=== PATIENT | male | born 1965 | race Native Hawaiian/Other Pacific Islander ===

== ENCOUNTER 2016-09-03 17:02 | Observation (INO) | payer OTHER ==
[~2016-09-03] VITALS: Ht 188 cm; Wt 87.7 kg
[~2016-09-03 17:02] MED LIST: ALAVERT10 M2 PO; ASPIRIN LOW STR81 MG OR; CITALOPRAM40 MG PO; GABA100C2 PO; LOPRESSOR100 MG PO; SIMV10TA PO
[2016-09-03 18:01] LABS: PLATELET COUNT 215 K/uL (142-355)
[2016-09-03] MEDS ORDERED: OMEP20CA PO (18:04)
[2016-09-03] MEDS ORDERED: CALAN SR120 MG PO (18:05)
[2016-09-03] MEDS ORDERED: LISI10TA11 PO (18:05)
[2016-09-03] MEDS ORDERED: CLOP75TA2 PO (18:05)
[2016-09-03] MEDS ORDERED: PLETAL50 MG PO (18:06)
[2016-09-03] MEDS ORDERED: CELEXA40 MG PO (18:06)
[2016-09-03] MEDS ORDERED: MOTRIN IB200 MG PO (18:07)
[2016-09-03 18:16] LABS: POTASSIUM 4.1 mmol/L (3.6-5.2); SODIUM 129 mmol/L (136-145)
[2016-09-03 18:54] VITALS: BP 146/94; TEMP 97.4; Ht 188 cm; Wt 87.7 kg
[2016-09-03 20:00] VITALS: BP 90/45; TEMP 97.4
[2016-09-04 01:05] VITALS: BP 112/73; TEMP 97.5
[2016-09-04 04:00] VITALS: BP 121/64; TEMP 97.7
[2016-09-04 08:00] VITALS: BP 104/64; TEMP 97.9
[2016-09-04 12:00] VITALS: BP 134/80; TEMP 97.8
[2016-09-04 16:00] VITALS: BP 150/87; TEMP 97.8
[2016-09-04 16:24] LABS: PLATELET COUNT 203 K/uL (142-355)
[2016-09-04 16:41] LABS: POTASSIUM 3.6 mmol/L (3.6-5.2); SODIUM 140 mmol/L (136-145)
[2016-09-04 20:21] VITALS: BP 129/75; TEMP 97.6
[2016-09-05 00:24] VITALS: BP 123/81; TEMP 98.3
[2016-09-05 05:13] LABS: PLATELET COUNT 167 K/uL (142-355)
[2016-09-05 05:35] VITALS: BP 132/74; TEMP 98
[2016-09-05 05:40] LABS: SODIUM 139 mmol/L (136-145)
[2016-09-05 08:00] VITALS: BP 159/80; TEMP 98.1
[2016-09-05 12:00] VITALS: BP 140/86; TEMP 97.8
== END 2016-09-05 16:45 | disposition home or self-care (01) ==
LOC: MED/SURG 17:02
PROVIDERS: ADMIT Family Medicine
DX: K92.2 Gastrointestinal hemorrhage, unspecified (principal); K92.1 Melena; K52.89 Other specified noninfective gastroenteritis and colitis; A08.8 Other specified intestinal infections
CPT/HCPCS: 36415; 80053; 81000; 83735; 84100; 85027; 87040; 87045; 87328; 87329; 87493; 87798; 87899; 96365; 96367; 96374; 96375; 99220; G0378; G0379; J0744; J2175; J2270; J2550; J3490; Q9963

== ENCOUNTER 2017-08-10 13:50 | Observation (INO) | payer OTHER ==
[~2017-08-10] VITALS: Ht 185.4 cm; Wt 79.9 kg
[~2017-08-10 13:50] MED LIST changes: +CALAN SR120 MG PO; +CELEXA40 MG PO; +CLOP75TA2 PO; +LISI10TA11 PO; +MOTRIN IB200 MG PO; +OMEP20CA PO; +PLETAL50 MG PO
[2017-08-10 14:14] VITALS: BP 153/83; TEMP 98.2
[2017-08-10 14:34] LABS: PLATELET COUNT 215 K/uL (142-355)
[2017-08-10 14:44] LABS: POTASSIUM 4.3 mmol/L (3.6-5.2); SODIUM 136 mmol/L (136-145)
[2017-08-10 14:59] LABS: PARTIAL THROMBOPLASTIN TIME 22.3 SECONDS (24.5-33.6)
[2017-08-10 17:41] VITALS: BP 151/91; TEMP 98.5; Ht 185.4 cm; Wt 79.9 kg
[2017-08-10 20:00] VITALS: BP 129/78; TEMP 97.6
[2017-08-11] VITALS: BP 121/78; TEMP 97.5
[2017-08-11 04:00] VITALS: BP 107/66; TEMP 97.7
[2017-08-11 06:29] LABS: SODIUM 137 mmol/L (136-145)
[2017-08-11 06:42] LABS: PLATELET COUNT 197 K/uL (142-355)
[2017-08-11 08:00] VITALS: BP 128/78; TEMP 97.6
[2017-08-11 12:00] VITALS: BP 136/80; TEMP 98.3
== END 2017-08-11 13:55 | disposition home or self-care (01) ==
LOC: ED 13:50 → MED/SURG 15:50
PROVIDERS: Family Medicine
DX: R07.89 Other chest pain (principal)
CPT/HCPCS: 36415; 80053; 82550; 82553; 83880; 84484; 85027; 85610; 85730; 93005; 94760; 96374; 96375; 99220; 99284; G0378; J1885; J2270; J2405; J3490

== ENCOUNTER 2017-11-09 08:41 | Outpatient (CLI) | payer OTHER ==
[~2017-11-09] VITALS: Ht 182.9 cm; Wt 80.7 kg
== END 2017-11-09 22:53 | disposition home or self-care (01) ==
LOC: NM 08:41
DX: R07.89 Other chest pain (principal); I48.91 Unspecified atrial fibrillation
CPT/HCPCS: A9500; J2785

== ENCOUNTER 2018-01-13 09:22 | Outpatient (CLI) | payer OTHER ==
[~2018-01-13] VITALS: Ht 185.4 cm; Wt 81.2 kg
[2018-01-13 10:15] VITALS: BP 132/81; TEMP 98
[2018-01-13 12:45] VITALS: BP 126/78; TEMP 98.4
== END 2018-01-13 20:06 | disposition home or self-care (01) ==
LOC: US 09:22 → INF 09:22 → US 09:30 → INF 20:06
DX: L03.116 Cellulitis of left lower limb (principal)
CPT/HCPCS: 96365; 96366; J3370

== ENCOUNTER 2018-01-14 07:50 | Outpatient (CLI) | payer OTHER ==
[~2018-01-14] VITALS: Ht 185.4 cm; Wt 81.2 kg
== END 2018-01-14 19:20 | disposition home or self-care (01) ==
LOC: INF 07:50
DX: L03.116 Cellulitis of left lower limb (principal)
CPT/HCPCS: 96360; 96365; 96366; J3370

== ENCOUNTER 2018-01-15 08:08 | Outpatient (CLI) | payer OTHER ==
[~2018-01-15] VITALS: Ht 185.4 cm; Wt 81.2 kg
== END 2018-01-15 21:41 | disposition home or self-care (01) ==
LOC: INF 08:08
DX: L03.116 Cellulitis of left lower limb (principal)
CPT/HCPCS: 36415; 80202; 96360; 96366; J3370

== ENCOUNTER 2018-01-16 07:41 | Outpatient (CLI) | payer OTHER ==
[~2018-01-16] VITALS: Ht 185.4 cm; Wt 81.2 kg
== END 2018-01-16 21:10 | disposition home or self-care (01) ==
LOC: INF 07:41
DX: L03.116 Cellulitis of left lower limb (principal)
CPT/HCPCS: 96360; 96366; J3370

== ENCOUNTER 2018-01-17 09:11 | Outpatient (CLI) | payer OTHER ==
[~2018-01-17] VITALS: Ht 185.4 cm; Wt 81.2 kg
== END 2018-01-17 22:02 | disposition home or self-care (01) ==
LOC: INF 09:11
DX: L03.116 Cellulitis of left lower limb (principal)
CPT/HCPCS: 96365; 96366; J3370

== ENCOUNTER 2018-01-18 08:01 | Outpatient (CLI) | payer OTHER ==
[~2018-01-18] VITALS: Ht 185.4 cm; Wt 81.2 kg
== END 2018-01-18 22:18 | disposition home or self-care (01) ==
LOC: INF 08:01
DX: L03.116 Cellulitis of left lower limb (principal)
CPT/HCPCS: 96365; 96366; J3370

== ENCOUNTER 2018-01-19 07:41 | Outpatient (CLI) | payer OTHER ==
[~2018-01-19] VITALS: Ht 185.4 cm; Wt 81.2 kg
[2018-01-19 08:35] VITALS: BP 135/80; TEMP 98.1
[2018-01-19 10:37] VITALS: BP 127/75; TEMP 98.4
== END 2018-01-19 21:41 | disposition home or self-care (01) ==
LOC: INF 07:41
DX: L03.116 Cellulitis of left lower limb (principal)
CPT/HCPCS: 96365; 96366; J3370

== ENCOUNTER 2018-01-20 07:42 | Outpatient (CLI) | payer OTHER ==
[~2018-01-20] VITALS: Ht 185.4 cm; Wt 81.2 kg
== END 2018-01-20 20:11 | disposition home or self-care (01) ==
LOC: INF 07:42
DX: L03.116 Cellulitis of left lower limb (principal)
CPT/HCPCS: 96365; J0330; J1885; J2001; J2250; J2405; J2704; J2710; J3370; J3490

== ENCOUNTER 2018-02-18 10:13 | Emergency (ER) | payer OTHER ==
[~2018-02-18] VITALS: Ht 185.4 cm; Wt 81.2 kg
[2018-02-18 10:20] VITALS: TEMP 98.1
[2018-02-18 11:14] LABS: PLATELET COUNT 240 K/uL (142-355)
[2018-02-18 11:23] LABS: SODIUM 134 mmol/L (136-145)
[2018-02-18 11:31] LABS: PARTIAL THROMBOPLASTIN TIME 23.6 SECONDS (24.5-33.6)
[2018-02-18 12:50] VITALS: BP 138/88
== END 2018-02-18 13:10 | disposition home or self-care (01) ==
LOC: ED 10:13
PROVIDERS: Emergency Medicine
DX: I48.91 Unspecified atrial fibrillation (principal); R07.89 Other chest pain; R00.0 Tachycardia, unspecified
CPT/HCPCS: 36415; 80053; 82550; 82553; 84484; 85027; 85610; 85730; 93005; 99283

== ENCOUNTER 2018-02-21 12:35 | Outpatient (CLI) | payer OTHER | END 2018-02-21 20:26 | disposition home or self-care (01) | LOC: CT 12:35 | DX: R51 Headache (principal); H93.13 Tinnitus, bilateral ==

== ENCOUNTER 2018-03-24 12:26 | Emergency (ER) | payer OTHER ==
[~2018-03-24] VITALS: Ht 185.4 cm; Wt 81.2 kg
[2018-03-24 12:32] VITALS: TEMP 97.8
[2018-03-24 13:06] LABS: PLATELET COUNT 313 K/uL (142-355)
[2018-03-24 13:15] LABS: POTASSIUM 4.1 mmol/L (3.6-5.2)
[2018-03-24 13:53] LABS: PARTIAL THROMBOPLASTIN TIME 21.2 SECONDS (24.5-33.6)
[2018-03-24 16:30] VITALS: BP 132/78
== END 2018-03-24 16:45 | disposition home or self-care (01) ==
LOC: ED 12:26
PROVIDERS: Family Medicine
PROC: 2W3QX1Z Immobilization of Right Lower Leg using Splint (ICD-10-PCS; principal; 2018-03-24)
DX: S20.212A Contusion of left front wall of thorax, initial encounter (principal); S20.211A Contusion of right front wall of thorax, initial encounter; S00.83XA Contusion of other part of head, initial encounter; S10.83XA Contusion of other specified part of neck, initial encounter; S90.01XA Contusion of right ankle, initial encounter; R51 Headache; R07.89 Other chest pain; W11.XXXA Fall on and from ladder, initial encounter; Y92.89 Other specified places as the place of occurrence of the external cause
CPT/HCPCS: 36415; 80053; 80320; 85027; 85610; 85730; 96374; 96375; 99284; J1885; J2175; J2405; J2550; L4350

== ENCOUNTER 2018-04-02 18:19 | Emergency (ER) | payer OTHER ==
[~2018-04-02] VITALS: Ht 185.4 cm; Wt 81.2 kg
[2018-04-02 18:20] VITALS: BP 133/97; TEMP 98.4
== END 2018-04-02 19:53 | disposition home or self-care (01) ==
LOC: ED 18:19
DX: R07.89 Other chest pain (principal); M94.0 Chondrocostal junction syndrome [Tietze]
CPT/HCPCS: 93005; 96372; 99283; J2175; J2550

== ENCOUNTER 2018-08-01 14:43 | Outpatient (CLI) | payer OTHER | END 2018-08-01 19:15 | disposition home or self-care (01) | LOC: MRI 14:43 | DX: R51 Headache (principal) ==

== ENCOUNTER 2019-07-22 10:09 | Outpatient (CLI) | payer OTHER | END 2019-07-22 21:06 | disposition home or self-care (01) | LOC: RAD 10:09 | DX: M25.552 Pain in left hip (principal) ==

== ENCOUNTER 2019-08-16 18:54 | Outpatient (CLI) | payer OTHER | END 2019-08-16 22:02 | disposition home or self-care (01) | LOC: LAB 18:54 | DX: R19.7 Diarrhea, unspecified (principal) | CPT/HCPCS: 87324; 87449 ==

== ENCOUNTER 2019-09-05 01:25 | Emergency (ER) | payer OTHER ==
[~2019-09-05] VITALS: Ht 185.4 cm; Wt 81.2 kg
[2019-09-05 01:30] VITALS: BP 131/86; TEMP 98
[2019-09-05 01:56] LABS: PLATELET COUNT 219 K/uL (142-355)
[2019-09-05 02:44] LABS: PARTIAL THROMBOPLASTIN TIME 20.5 SECONDS (24.5-33.6)
[2019-09-05 02:57] LABS: POTASSIUM 3.8 mmol/L (3.6-5.2); SODIUM 133 mmol/L (136-145)
== END 2019-09-05 02:20 | disposition home or self-care (01) ==
LOC: ED 01:25
PROVIDERS: Hospitalist
DX: R07.89 Other chest pain (principal); I48.91 Unspecified atrial fibrillation; R06.02 Shortness of breath
CPT/HCPCS: 80048; 80320; 82550; 83880; 84484; 85027; 85379; 85610; 85730; 93005; 99283

== ENCOUNTER 2020-12-30 18:37 | Outpatient (CLI) | payer OTHER | END 2020-12-30 19:58 | disposition home or self-care (01) | LOC: RAD 18:37 | PROVIDERS: ATTEND Nurse Practitioner Primary Care | DX: M25.511 Pain in right shoulder (principal); M79.642 Pain in left hand ==

== ENCOUNTER 2022-04-30 14:30 | Outpatient (CLI) | payer OTHER | END 2022-04-30 20:54 | disposition home or self-care (01) | LOC: CT 14:30 | PROVIDERS: ATTEND Nurse Practitioner Family | DX: I10 Essential (primary) hypertension (principal); M25.511 Pain in right shoulder; F17.210 Nicotine dependence, cigarettes, uncomplicated | CPT/HCPCS: 93005 ==